=== PATIENT | female | born 1990 | race Caucasian/White ===

== ENCOUNTER 2020-10-14 14:25 | Emergency (ER) | payer OTHER, SELFPAY ==
--- NOTE | ~2020-10-14 | XR_ITS ---
EXAMINATION: XR chest 1V portable 10/14/2020 17:04 INDICATION: Left-sided chest pain PROCEDURE: AP portable chest COMPARISON: No prior studies for comparison. FINDINGS: The lungs are clear. The cardiomediastinal silhouette is within normal limits. There are no pleural effusions. There is no pneumothorax suspected. IMPRESSION: 1: NO ACUTE CARDIOPULMONARY DISEASE. Reviewed, dictated and finalized at location A.
[2020-10-14 14:38] VITALS: BP 128/104; PULSE 113; RESP 18; TEMP 36.9; O2SAT 100
[2020-10-14 16:32] LABS: Basophils Absolute Auto 0.1 K/mm3 (0.0-0.1); Basophils Percent Auto 0.5 % (0.2-1.2); Eosinophils Absolute Auto 0.1 K/mm3 (0-0.3); Eosinophils Percent Auto 1.1 % (0-4.4); Hematocrit 43.1 % (37.0-47.0); Hemoglobin 14.8 g/dL (12.0-15.0); Immature Granulocyte Absolute 0.11 K/mm3 (0.00-0.031); Immature Granulocyte Percent A 0.8 % (0-0.5); Lymphocytes Absolute Auto 2.07 K/mm3 (0.9-3.2); Lymphocytes Percent Auto 15.8 % (18.3-44.2); Mean Corpuscular HGB Conc 34.3 g/dl (32-36); Mean Corpuscular Hemoglobin 31.5 pg (26-34); Mean Corpuscular Volume 91.7 fl (80-100); Mean Platelet Volume 8.9 fl (7.4-10.4); Monocytes Absolute Auto 0.8 K/mm3 (0.1-0.6); Monocytes Percent Auto 6.2 % (2.6-8.5); Neutrophils Absolute Auto 9.9 K/mm3 (1.3-6.7); Neutrophils Percent Auto 75.6 % (45.5-73.1); Platelet Count Result 270 k/mm3 (150-375); Red Cell Distribution Width 12.4 % (11.5-14.5); White Blood Count 13.1 K/mm3 (4.5-10.0)
[2020-10-14 16:42] LABS: Ethanol < 10 mg/dL (<10)
[2020-10-14 16:43] LABS: Alanine Aminotransferase 17 U/L (4-35); Albumin Level 4.3 g/dL (3.5-5.1); Alkaline Phosphatase 91 U/L (38-126); Anion Gap 7 mmol/L (8-16); Aspartate Amino Transferase 26 U/L (14-36); Bilirubin,Total 0.5 mg/dL (0.2-1.3); Blood Urea Nitrogen 12 mg/dL (7-17); Calcium 8.7 mg/dL (8.4-10.2); Carbon Dioxide 24 mmol/L (22-30); Chloride 108 mmol/L (98-107); Estimated CRCL calculation 92 ml/min; Estimated Glomerular Filt Rate > 60; Glucose 128 mg/dL (65-105); Potassium 3.8 mmol/L (3.4-5.0); Sodium 139 mmol/L (137-145)
[2020-10-14 17:37] LABS: Add Urine Microscopic? YES; Appearance Urine Cloudy (Clear); Bacteria Urine Trace /hpf; Bilirubin Urine Negative (Negative); Blood Urine 1+ (Negative); Color Urine Yellow (Yellow); Glucose Urine UA Negative (Negative); Ketones Urine 1+ mg/dL (Negative); Leukocyte Esterase Ur Negative LEU/UL (Negative); Mucus Urine Rare /lpf; Nitrate Urine Negative (Negative); Protein Urine 1+ mg/dL (Negative); Squamous Epithelial Cell Urine Many /hpf (Few); WBC Urine 0-3 /hpf
[2020-10-14 17:50] LABS: Amphetamine Screen Urine Negative (Negative); Barbiturate Screen Urine Negative (Negative); Benzodiazepines Screen Urine Negative (Negative); Cannabinoid Screen Urine Negative (Negative); Cocaine Screen Urine Negative (Negative); Methadone Screen Urine Negative (Negative); Opiate Screen Urine Negative (Negative); Phencyclidine Screen Urine Negative (Negative)
--- NOTE | 2020-10-14 18:06 | PC.NURSE ---
crisis called to evaluate patient. left message
[2020-10-14 18:08] VITALS: BP 122/78; PULSE 75; RESP 20; O2SAT 99
--- NOTE | 2020-10-14 18:08 | ED.GENADULT ---
HPI - General Adult General Chief complaint: Psychiatric Symptoms Stated complaint: needs checked out Time Seen by Provider: 10/14/20 16:11 Source: patient Mode of arrival: ambulatory Limitations: no limitations History of Present Illness HPI narrative: Patient is a 30-year-old female who presents with concern for altered mentation patient was outside speaking to herself apparently had family member that notes that she has been outside and has been having delusions and hallucinations. Patient with longstanding history of psych history does have a psychiatrist. Patient notes she lives by herself. There is concerned that the patient is noncompliant with medications patient notes she is currently not taking medications. Patient denies suicidal homicidal ideation. Related Data Home Medications Medication Instructions Recorded Confirmed lisinopril 5 mg PO DAILY 10/14/20 pravastatin 10 mg PO 10/14/20 Allergies Allergy/AdvReac Type Severity Reaction Status Date / Time latex Allergy Unknown Verified 10/14/20 15:45 Review of Systems Review of Systems: All systems reviewed & are unremarkable except as noted in HPI and below PMFSH Social History Social History (Updated 10/14/20 @ 18:16 by Felix Mi PA-C) Smoking status: Never smoker Substance use: never Substance use type: does not use Gender identity (if verbalized by the patient): Female Exam Narrative: Exam Narrative: GENERAL: Well-appearing, well-nourished, and in no acute distress. HEAD: Normocephalic, atraumatic. EYES: PERRLA and EOMI. ENT: Nares clear, no rhinorrhea or epistaxis. Mucous membranes moist. CHEST: Clear to auscultation. No respiratory distress. No wheezes rales or rhonchi HEART: Regular rate and rhythm. No murmur heard. Normal peripheral pulses. ABDOMEN: Soft, nontender, nondistended EXTREMITIES: Normal range of motion. No edema. SKIN: Warm, dry, no rash. NEURO: No focal deficits. Alert and oriented x3. PSYCH: Patient with normal affect as seem to get off task easily with conversation with some word salad Course Course Emergency Course: Patient was able to be evaluated by crisis and myself patient in the room answering questions appropriately in no distress denies suicidal or homicidal ideation and otherwise in the room in no distress is noted felt appropriate for discharge home patient notes she will follow-up as instructed Vital Signs Vital signs: Vital Signs Temperature 98.5 F 10/14/20 14:38 Pulse Rate 113 H 10/14/20 14:38 Respiratory Rate 18 10/14/20 14:38 Blood Pressure 128/104 H 10/14/20 14:38 Pulse Oximetry 100 10/14/20 14:38 Temperature 98.5 F 10/14/20 14:38 Pulse Rate 98 10/14/20 20:53 Respiratory Rate 18 10/14/20 20:53 Blood Pressure 131/87 10/14/20 20:53 Pulse Oximetry 97 10/14/20 20:53 Medical Decision Making MDM Narrative Medical decision making narrative: Patient was evaluated in the emergency department has remained cooperative answering questions appropriately felt appropriate for discharge home patient will take a taxi home and no she will follow with primary care for further evaluation patient seems safe and does not pose a threat to herself at this time Vital Signs Vital Signs: Vital Signs Temperature 98.5 F 10/14/20 14:38 Pulse Rate 113 H 10/14/20 14:38 Respiratory Rate 18 10/14/20 14:38 Blood Pressure 128/104 H 10/14/20 14:38 Pulse Oximetry 100 10/14/20 14:38 Temperature 98.5 F 10/14/20 14:38 Pulse Rate 98 10/14/20 20:53 Respiratory Rate 18 10/14/20 20:53 Blood Pressure 131/87 10/14/20 20:53 Pulse Oximetry 97 10/14/20 20:53 Lab Data Result diagrams: 10/14/20 16:26 10/14/20 16:26 Labs: Lab Results 10/14/20 10/14/20 10/14/20 Range/Units 16:26 16:26 16:26 WBC 13.1 H (4.5-10.0) K/mm3 RBC 4.70 (4.2-5.4) M/mm3 Hgb 14.8 (12.0-15.0) g/dL Hct 43.1 (37.0-47.0) % MCV 91.
--- NOTE | 2020-10-14 18:17 | PC.NURSE ---
crisis returned call. Will come to evaluate
--- NOTE | 2020-10-14 19:41 | PC.NURSE ---
chestnut here to evaluate patient
--- NOTE | 2020-10-14 19:44 | PC.NURSE ---
Crisis at bedside .
[2020-10-14 20:53] VITALS: BP 131/87; PULSE 98; RESP 18; O2SAT 97
[2020-10-14 21:31] VITALS: BP 132/76; PULSE 76; RESP 18; O2SAT 99
== END 2020-10-14 21:32 | disposition home or self-care (01) ==
PROVIDERS: Emergency Medicine Emergency Medical Services; Emergency Provider Emergency Medicine; PCP Clinical Nurse Specialist Psychiatric/Mental Health, Child & Family
DX: F41.9 Anxiety disorder, unspecified (principal)
CPT/HCPCS: 36415; 71045; 80053; 80307; 81001; 81025; 84443; 85025; 99284